=== PATIENT | female | born 1985 | race Caucasian/White ===

== ENCOUNTER 2023-01-28 19:52 | Outpatient (REF) | payer SELFPAY ==
[2023-02-03 17:11] LABS: Age Gdln ACOG Testing Note (.); HPV Aptima Negative (Negative); IGP, Aptima HPV, rfx 16/18,45 Note (.)
== END 2023-01-28 19:53 | disposition home or self-care (01) ==
LOC: LAB 19:52
PROVIDERS: Visit Provider Obstetrics & Gynecology
DX: Z12.4 Encounter for screening for malignant neoplasm of cervix (principal)
CPT/HCPCS: G0145

== ENCOUNTER 2024-02-21 20:37 | Outpatient (REF) | payer BC, SELFPAY ==
[2024-02-25 12:10] LABS: Age Gdln ACOG Testing Note (.); HPV Aptima Negative (Negative); IGP, Aptima HPV, rfx 16/18,45 Note (.)
== END 2024-02-21 20:38 | disposition home or self-care (01) ==
LOC: LAB 20:37
PROVIDERS: Visit Provider Obstetrics & Gynecology
DX: Z01.419 Encounter for gynecological examination (general) (routine) without abnormal findings (principal)
CPT/HCPCS: 87624; 88175

== ENCOUNTER 2025-02-26 12:46 | Outpatient (REF) | payer OTHER, SELFPAY ==
--- OUTSIDE RECORDS SUMMARY | 2025-02-26 12:55 | XMS_ITS | CCD ---
Author Organization [facility] Care Team Providers Care Work Ticket Distributor Name Role Phone DR SOLEDAD TOLBERT Attending Unavailable DR SOLEDAD TOLBERT Consulting Unavailable DR SOLEDAD TOLBERT Admitting Unavailable SOLEDAD TOLBERT Attending Unavailable Virgilio Pace MD Primary Care Provider Virgilio Pace MD Primary Care Provider Medications Current Medications Medication Drug Class(es) Dates Sig (Normalized) Sig (Original) doxycycline hyclate 100 mg oral capsule (2 sources) Tetracycline-cla ss Drug Start: 02-26-2025 End: 03-12-2025 doxycycline (Vibramycin) 100 MG capsule Indications: Cervicitis Take 1 capsule (100 mg) by mouth in the morning and 1 capsule (100 mg) before bedtime. Do all this for 14 days. Take with at least 8 ounces (large glass) of water, do not lie down for 30 minutes after. 28 capsule 02/26/2025 03/12/2025 Active escitalopram 20 mg oral tablet (9 sources) Serotonin Reuptake Inhibitor Start: 01-26-2024 take 1 tablet by mouth once daily escitalopram (Lexapro) 20 MG tablet Take 20 mg by mouth Daily 01/26/2024 Active End: 02-21-2024 take 1 tablet by mouth in the morning escitalopram (Lexapro) 10 MG tablet Take 10 mg by mouth in the morning. 02/21/2024 Discontinued (Other) lamoTRIgine 100 mg oral tablet (7 sources) Mood Stabilizer, Anti-epileptic Agent Start: 12-21-2022 take 1 tablet by mouth in the morning lamoTRIgine (LaMICtal) 100 MG tablet Take 1 tablet by mouth in the morning and 1 tablet before bedtime. 12/21/2022 Active levonorgestrel 0.065006 mg/hr intrauterine system (7 sources) Progestin, Progestin-containin g Intrauterine Device Start: 02-15-2023 Levonorgestrel intrauterine device 52 mg 24 hr metFORMIN hydrochloride 500 mg extended release oral tablet (2 sources) Biguanide Start: 02-26-2025 End: 03-28-2025 take 1 tablet by mouth every twenty-four hours at mealtime metFORMIN XR (Glucophage-XR) 500 MG 24 hr tablet Indications: Encounter for weight management Take 1 tablet (500 mg) by mouth in the evening. Take with meals Do not crush, chew, or split. 30 tablet 11 02/26/2025 03/28/2025 Active Problems Problem Classification Problem Date Documented Date Episodic/Chronic Contraceptive and procreative management (4 sources) Patient encounter status; Translations: [Encounter for other general counseling and advice on contraception] 02-26-2025 Episodic Immunizations and screening for infectious disease (1 source) Encounter for screening for human papillomavirus (HPV); Translations: [ENC SCREENING HUMAN PAPILLOMAVIRUS] Onset: 01-25-2022 Episodic Inflammatory diseases of female pelvic organs (2 sources) Inflammation of cervix; Translations: [Inflammatory disease of cervix uteri] 02-26-2025 Episodic Other screening for suspected conditions (not mental disorders or infectious disease) (4 sources) Encounter for screening for malignant neoplasm of cervix; Translations: [ENC SCREENING MALIG NEOPLASM CERV] Onset: 01-22-2022 Episodic Results Test Name Value Interpretation Reference Range Facility IGP,APTIMA HPV,AGE GDLNon AGE GDLN ACOG TESTING Note . [facility] Comment on above: TESTS RESULT FLAG UN ITS REF RANGE LAB Clinician Provided Cytology Information Source.............Cervix;Endocervix No. of containers..01 ThinPrep Vial Age Algo ACOG Lamar... 3065 FLAG LEGEND: L-Low Normal,H-High Normal,LL-Alert Low,HH-Alert High <-Panic Low,>-Panic High,A-Abnormal,AA-Critical Abnormal Performed at: 01 =[address] [address] Mariann Nuñez MD, HPV APTIMA Negative Negative [facility] Comment on above: This nucleic acid am plification test detects fourteen high- risk HPV types (16,18,31,33,35,39,45,51,52,56,58,59,66,68) without differentiation. Performed at: =[address] [id number] Operations Research Scientist: Mariann Nuñez MD, Phone: [phone] Performed at: [address] [id number] Operations Research Scientist: Mariann Nuñez MD, Phone: [phone] IGP, APTIMA HPV, RFX 16/18,45 Note . [facility] Comment on above: TESTS RESULT FLAG UN ITS REF RANGE LAB DIAGNOSIS: 02 NEGATIVE FOR INTRAEPITHELIAL LESION OR MALIGNANCY. Specimen adequacy: 02 Satisfactory for evaluation. Endocervical and/or squamous metaplastic cells (endocervical component) are present. Performed by: Sarah uY, Systems Developer (ASCP) . 02 Note: Note 02 The Pap smear is a screening test designed to aid in the detection of premalignant and malignant conditions of the uterine cervix. It is not a diagnostic procedure and should not be used as the sole means of detecting cervical cancer. Both false-positive and false-negative reports do occur. Test Methodology: Note 02 This liquid based ThinPrep(R) pap test was screened with the use of an image guided system. HPV Genotype Reflex Note 02 Criteria not met, HPV Genotype not performed. FLAG LEGEND: L-Low Normal,H-High Normal,LL-Alert Low,HH-Alert High <-Panic Low,>-Panic High,A-Abnormal,AA-Critical Abnormal Performed at: [address] [address] Mariann Nñuez MD, BRUSH-SPATULA CERVIX ENDOCERVIX [facility] No Panel Informationon 02-20 [facility] PAP ACOG PANEL 2: 30 to 65on 01-28-2022 . . Normal [facility] Comment on above: Result Comment: Perf ormed at: WB Performed By: #### [id number] #### [facility] [address] [address] [address] Teodora Mujica Age Gdln ACOG Testing -66 Normal [facility] Comment on above: Performed By: #### [id number] #### [facility] [address] [address] [address] Teodora Mujica DIAGNOSIS: Comment Normal [facility] Comment on above: Result Comment: NEGA TIVE FOR INTRAEPITHELIAL LESION OR MALIGNANCY. Performed at: WB Performed By: #### [id number] #### [facility] [address] [address] [address] Teodora Mujica HPV Aptima Negative Normal Negative [facility] Comment on above: Result Comment: This nucleic acid amplification test detects fourteen high-risk HPV types (16,18,31,33,35,39,45,51,52,56,58,59,66,68) without differentiation. Performed at: =G Performed By: #### [id number] #### [facility] [address] [place] [address] Dr. Teodora Mujica Methodology: Comment Normal [facility] Comment on above: Result Comment: This liquid based ThinPrep(R) pap test was screened with the use of an image guided system. Performed at: WB Performed By: #### [id number] #### [facility] [address] [place] [address] Dr. Teodora Mujica Note: Comment Normal [facility] Comment on above: Result Comment: The Pap smear is a screening test designed to aid in the detection of premalignant and malignant conditions of the uterine cervix. It is not a diagnostic procedure and should not be used as the sole means of detecting cervical cancer. Both false-positive and false-negative reports do occur. . Performed at: WB Performed By: #### [id number] #### [facility] [address] [place] [address] Dr. Teodora Mujica Performed by: Comment Normal [facility] Comment on above: Result Comment: Ankur Griffin Systems Developer (ASCP) Performed at: WB Performed By: #### [id number] #### [facility] [address] [place] [address] Dr. Teodora Mujica Specimen adequacy: Comment Normal [facility] Comment on above: Result Comment: Sati sfactory for evaluation. Endocervical and/or squamous metaplastic cells (endocervical component) are present. Performed at: WB Performed By: #### [id number] #### [facility] [address] [place] [address] Dr. Teodora Mujica Vital Signs Date Time Vital Sign Value Performing Clinician Faci lity 02-26-2025 10:19040 Body height 165.1 cm [employer] Phone: [facility] 02-26-2025 10:19-0400 Body mass index (BMI) [Ratio] 33.28 kg/m2 Soledad Tomasz DO Work Phone: [facility] 02-26-2025 10:19-0400 Body weight 90.72 kg Soledad Tomasz DO Work Phone: [facility] 02-26-2025 10:19-0400 Diastolic blood pressure 74 mm[Hg] Soledad Tomasz DO Work Phone: [facility] 02-26-2025 10:19-0400 Systolic blood pressure 120 mm[Hg] Soledad Tomasz DO Work Phone: [facility] 02-21-2024 09:11-0400 Body mass index (BMI) [Ratio] 32.62 kg/m2 Soledad Tomasz DO Work Phone: [facility] 02-21-2024 09:11-0400 Body weight 88.91 kg Soledad Tomasz DO Work Phone: [facility] 02-21-2024 09:11-0400 Diastolic blood pressure 82 mm[Hg] Soledad Tomasz DO Work Phone: [facility] 02-21-2024 09:11-0400 Systolic blood pressure 120 mm[Hg] Soledad Tomasz DO Work Phone: [facility] Encounters Encounter Date Encounter Type Care Provider Facility Start: 02-26-2025 End: 02-26-2025 Bamboo flowsheet Soledad Tomasz DO Work Phone: [facility] Start: 02-26-2025 End: 02-26-2025 Bamboo flowsheet Soledad Tomasz DO Work Phone: [facility] Start: 02-26-2025 End: 02-26-2025 Patient encounter procedure Soledad Tomasz DO Work Phone: [facility] Start: 02-26-2025 End: 02-26-2025 Periodic preventive med est patient 18-39 yrs Soledad Tomasz DO Work Phone: [facility] Comment on above: Well woman exam with routine gynecological exam; Consultation for sterilization; Cervicitis; Encounter for weight management Start: 02-21-2024 End: 02-21-2024 Bamboo flowsheet Soledad Duongo DO Work Phone: [facility] Start: 02-21-2024 End: 02-25-2024 Bamboo flowsheet Soledad Kirklandzio DO Work Phone: [facility] Start: 02-21-2024 End: 02-25-2024 [facility] Result Encounter Soledad Duongo DO Work Phone: [facility] Unsolicited Start: 02-21-2024 End: 02-21-2024 Patient encounter procedure Soledad Duongo DO Work Phone: [facility] Work Phone: Start: 02-21-2024 End: 02-21-2024 Periodic preventive med est patient 18-39 yrs Soledad Duongo DO Work Phone: [facility] Comment on above: Well woman exam with routine gynecological exam Start: 02-21-2024 End: 02-21-2024 ambulatory SOLEDAD TOLBERT Not Available Start: 01-22-2022 End: 01-22-[address] SOLEDAD TOLBERT Facility: Procedures Date Procedure Procedure Detail Performing Clinician Start: 02-21-2024 IGP,APTIMA HPV,AGE GDLN Soledad Duongo DO Work Phone: Start: 02-21-2024 PAP TEST, EXTERNAL Core y Tomasz DO Work Phone: Plan of Treatment Date Care Activity Detail Author Start: 02-26-2025 End: 02-26-2025 Patient encounter procedure [facility] Comment on above: Arrived Start: 02-21-2024 End: 02-21-2024 Patient encounter procedure 02/21/2024 9:00 AM EDT Office Visit [facility] [address] [place] [id number] Soledad Tolbert DO [address] [place] [address] Arrived [facility] Comment on above: Arrived Cytology Cervical or vaginal smear or scraping study Pap Smear Pathology and Cytology Routine Well woman exam with routine gynecological exam Ordered: 02/21/2024 [facility] Work Phone: Comment on above: Ordered: 02/21/2024 Cytology Cervical or vaginal smear or scraping study Pap Smear Pathology and Cytology Routine Well woman exam with routine gynecological exam Ordered: 02/26/2025 [facility] Work Phone: Comment on above: Ordered: 02/26/2025 Human papilloma viru s DNA [Presence] in Unspecified specimen by Probe with amplification HPV DNA probe, amplified Microbiology Routine Well woman exam with routine gynecological exam Ordered: 02/21/2024 [facility] Comment on above: Ordered: 02/21/2024 Human papilloma viru s DNA [Presence] in Unspecified specimen by Probe with amplification HPV DNA probe, amplified Microbiology Routine Well woman exam with routine gynecological exam Ordered: 02/26/2025 [facility] Comment on above: Ordered: 02/26/2025 Payers Date Payer Category Payer Private Health Insurance [employer] [id number] 2023 [facility] [id number] 1986 Unknown [id number] 1986 Unknown [id number] 1959 Unknown [id number] Social History Date Type Detail Facility Tobacco smoking stat [facility] Tobacco smoking consumption unknown [facility] Start: 1985 Sex assigned at Female [facility] Start: 01-21-2023 Gender identity Identifies as female gender (finding) [facility] Start: 01-21-2023 Sexual orientation Heterosexual (fin ding) [facility] Start: 07-22-2022 Sex Female [facility] History of Present illness Narrative 02-26-2025 Iman Thompson LPN - 02/26/2025 10:00 AM EDT Note Date & Type Note Facility 02-26-2025 History of Presen t illness Narrative Reason for Appointment: Patient ID: Kimberly Figueroa is a 39 y.o. female who presents for Gynecologic Exam Patient presents today for Annual Exam. MEDICATIONS Current Outpatient Medications Medication Instructions doxycycline (VIBRAMYCIN) 100 mg, Oral, 2 times daily, Take with at least 8 ounces (large glass) of water, do not lie down for 30 minutes after escitalopram (LEXAPRO) 20 mg, Daily lamoTRIgine (LaMICtal) 100 MG tablet 1 tablet, Oral, 2 times daily metFORMIN XR (GLUCOPHAGE-XR) 500 mg, Oral, Daily with evening meal, Do not crush, chew, or split. ALLERGIES No Known Allergies PROBLEMS Active Ambulatory Problems Diagnosis Date Noted No Active Ambulatory Problems Resolved Ambulatory Problems Diagnosis Date Noted No Resolved Ambulatory Problems No Additional Past Medical History HISTORY PAST MEDICAL HISTORY SOCIAL HISTORY No past medical history on file. Social History Tobacco Use Smoking status: Not on file Smokeless tobacco: Not on file Substance Use Topics Alcohol use: Not on file Drug use: Not on file FAMILY HISTORY No family history on file. SURGICAL HISTORY History reviewed. No pertinent surgical history. REVIEW OF SYSTEMS Review of Systems: Review of Systems Constitutional: Negative. HENT: Negative. Eyes: Negative. Respiratory: Negative. Cardiovascular: Negative. Gastrointestinal: Negative. Genitourinary: Negative. Musculoskeletal: Negative. Skin: Negative. Neurological: Negative. All other systems reviewed and are negative. Hematological: Negative. Endocrine: Negative. Allergic/Immunologic: Negative. OBJECTIVE Objective: Physical Exam Constitutional: Appearance: Normal appearance. She is well-developed. Genitourinary: Vulva normal. IUD strings visualized. Breasts: Breasts are soft. Right: Normal. Left: Normal. Cardiovascular: Rate and Rhythm: Normal rate and regular rhythm. Pulmonary: Effort: Pulmonary effort is normal. Breath sounds: Normal breath sounds. Abdominal: General: Bowel sounds are normal. There is no distension. Palpations: Abdomen is soft. Tenderness: There is no abdominal tenderness. There is no guarding or rebound. Musculoskeletal: General: No swelling. Normal range of motion. Right lower leg: No edema. Left lower leg: No edema. Neurological: Mental Status: She is alert and oriented to person, place, and time. Skin: General: Skin is warm and dry. Psychiatric: Mood and Affect: Mood normal. Behavior: Behavior normal. Vitals and nursing note reviewed. Exam conducted with a corporate physical security supervisor present. Vitals: Estimated body mass index is 33.28 kg/m as calculated from the following: Height as of this encounter: 5' 5 . Weight as of this encounter: 200 lb. BP: 120/74 No LMP recorded (lmp unknown). (Menstrual status: IUD). Assessment/Plan ICD-10-CM 1. Well woman exam with routine gynecological exam Z01.419 Pap Smear HPV DNA probe, amplified 2. Consultation for sterilization Z30.09 3. Cervicitis N72 doxycycline (Vibramycin) 100 MG capsule 4. Encounter for weight management Z76.89 metFORMIN XR (Glucophage-XR) 500 MG 24 hr tablet Annual Exam: Patient presents today for an annual exam. Patient states she is doing well and has no complaints. Pap was obtained without difficulty. Discussed Tubal Ligation Laparoscopy. Patient will call office to speak with [employer] Mechanic and setup pre-op and date for BS if she desires. Patient also desires weight management. Discussed Metformin and returning for Adipex prescription in 1 month. Sent Metformin to patients pharmacy. Doxycycline sent to pharmacy to help with cervicitis. Orders Placed This Encounter Procedures HPV DNA probe, amplified Follow Up: Patient is to return in 4 weeks for Adipex and one year for annual unless needed otherwise. Documented by Iman Thompson LPN on behalf of: Soledad Tolbert DO documented in this encounter [facility] History of Present illness Narrative 02-21-2024 Iman Thompson LPN - 02/21/2024 9:00 AM EDT Note Date & Type Note Facility 02-21-2024 History of Presen t illness Narrative Reason for Appointment: Patient ID: Kimberly Figueroa is a 38 y.o. female who presents for [facility] Women Visit Patient presents today for Annual Exam. MEDICATIONS Current Outpatient Medications Medication Instructions escitalopram (LEXAPRO) 20 mg, Daily lamoTRIgine (LaMICtal) 100 MG tablet 1 tablet, Oral, 2 times daily ALLERGIES No Known Allergies PROBLEMS Active Ambulatory Problems Diagnosis Date Noted No Active Ambulatory Problems Resolved Ambulatory Problems Diagnosis Date Noted No Resolved Ambulatory Problems No Additional Past Medical History HISTORY PAST MEDICAL HISTORY SOCIAL HISTORY History reviewed. No pertinent past medical history. Social History Tobacco Use Smoking status: Not on file Smokeless tobacco: Not on file Substance Use Topics Alcohol use: Not on file Drug use: Not on file FAMILY HISTORY No family history on file. SURGICAL HISTORY History reviewed. No pertinent surgical history. REVIEW OF SYSTEMS Review of Systems: Review of Systems All other systems reviewed and are negative. OBJECTIVE Objective: Physical Exam Constitutional: Appearance: Normal appearance. She is well-developed. Genitourinary: Vulva normal. Breasts: Breasts are soft. Right: Normal. Left: Normal. Cardiovascular: Rate and Rhythm: Normal rate and regular rhythm. Pulmonary: Effort: Pulmonary effort is normal. Breath sounds: Normal breath sounds. Abdominal: General: Bowel sounds are normal. There is no distension. Palpations: Abdomen is soft. Tenderness: There is no abdominal tenderness. There is no guarding or rebound. Musculoskeletal: General: No swelling. Normal range of motion. Right lower leg: No edema. Left lower leg: No edema. Neurological: Mental Status: She is alert and oriented to person, place, and time. Skin: General: Skin is warm and dry. Psychiatric: Mood and Affect: Mood normal. Behavior: Behavior normal. Vitals and nursing note reviewed. Exam conducted with a corporate physical security supervisor present. Vitals: Estimated body mass index is 32.62 kg/m as calculated from the following: Height as of 02/15/23: 5' 5 . Weight as of this encounter: 196 lb. BP: 120/82 Patient's last menstrual period was 01/31/2024. ASSESSMENT & PLAN ICD-10-CM 1. Well woman exam with routine gynecological exam Z01.419 Pap Smear HPV DNA probe, amplified Annual Exam: Patient presents today for an annual exam. Patient states she is doing well and has no complaints. Pap was obtained without difficulty. Orders Placed This Encounter Procedures HPV DNA probe, amplified Follow Up: Patient is to return in one year for annual unless needed otherwise. Documented by Iman Thompson LPN on behalf of: Soledad Tolbert DO documented in this encounter [facility] Evaluation note Note Date & Type Note Facility Evaluation note Diagnosis Well woman exam with routine gynecological exam Routine gynecological examination documented in this encounter [facility] Evaluation note Note Date & Type Note Facility Evaluation note Diagnosis Well woman exam with routine gynecological exam Routine gynecological examination Consultation for sterilization Other general counseling and advice for contraceptive management Cervicitis Cervicitis and endocervicitis Encounter for weight management documented in this encounter [facility] Summary Purpose Family History No Family History Records FoundNo Family History Records Found Advance Directives No Advanced Directives Records FoundNo Advanced Directives Records Found Additional Source Comments INFORMATION SOURCE (unrecogn ized section and content) DATE CREATED AUTHOR 02/06/2022 [facility] DATE CREATED AUTHOR 'S ORGANIZ ATION 02/22/2024 [facility] Care Teams (unrecognized sec tion and content) Work Ticket Distributor Relationship Specialty Start Date End Date Virgilio Pace MD [address] [place] [address], [address] [place] [address] PCP - General Family Medicine 01/28/23 Work Ticket Distributor Relationship Specialty Start Date End Date Virgilio Pace MD [address] [place] [address], [address] [place] [address] PCP - General Family Medicine 01/28/23 Work Ticket Distributor Relationship Specialty Start Date End Date Virgilio Pace MD PCP - General Family Medicine 01/28/23 Work Ticket Distributor Relationship Specialty Start Date End Date Virgilio Pace MD PCP - General Family Medicine 01/28/23 Reason for Visit (unrecogniz ed section and content) Reason Comments Well Women Visit Reason Comments Gynecologic Exam FOR RECORDS PERTAINING TO PATIENTS WHO ARE OR HAVE BEEN ENROLLED IN A CHEMICAL DEPENDENCY/SUBSTANCEABUSE PROGRAM, SOME INFORMATION MAY BE OMITTED. This clinical summary was aggregated from multiple sources. Caution should be exercised in using it in the provision of clinical care. This summary normalizes information from multiple sources, and as a consequence, information in this document may materially change the coding, format and clinical context of patient data. In addition, data may be omitted in some cases. CLINICAL DECISIONS SHOULD BE BASED ON THE PRIMARY CLINICAL RECORDS. [facility] [employer] provides no warranty or guarantee of the accuracy or completeness of information in this document.
[2025-02-28 16:09] LABS: Age Gdln ACOG Testing Note (.); IGP, Aptima HPV, rfx 16/18,45 Note (.)
== END 2025-02-26 12:47 | disposition home or self-care (01) ==
LOC: LAB 12:46
PROVIDERS: Visit Provider Obstetrics & Gynecology
DX: Z01.419 Encounter for gynecological examination (general) (routine) without abnormal findings (principal)
CPT/HCPCS: 87624; 88175